=== PATIENT | male | born 2000 | race Caucasian/White ===

== ENCOUNTER 2022-05-09 22:28 | Emergency (ER) | payer OTHER ==
[2022-05-09 22:42] VITALS: BP 142/83; PULSE 95; TEMP 98.4; BMI 21.7
[2022-05-10] MEDS ORDERED: LIDOCAINE 5% TOPICAL PATCH TP ONE (00:08)
[2022-05-10] MEDS ORDERED: ACETAMINOPHEN 500 MG TABLET (FP) PO ONE (00:08)
[2022-05-10] MEDS ORDERED: IBUPROFEN 400 MG TABLET (FP) PO ONE ×2 (00:08→00:28)
[2022-05-10] MEDS ORDERED: ACETAMINOPHEN 325 MG TABLET (FP) ONE (00:28)
[2022-05-10] MEDS ORDERED: LIDOCAINE 5% TOPICAL PATCH ONE (00:28)
[2022-05-10] MEDS ORDERED: LIDOCAINE PATCH REMOVAL MC SCH (22:00)
== END 2022-05-10 02:18 | disposition home or self-care (01) ==
LOC: JER 22:28
DX: R07.9 Chest pain, unspecified (principal)
CPT/HCPCS: 71046-TC-FY; 93005; 93010; 99284-25

== ENCOUNTER 2022-11-05 13:23 | Emergency (ER) | payer OTHER ==
[2022-11-05 13:31] VITALS: BP 126/77; PULSE 73; RESP 18; TEMP 98.1; BMI 23.0
[2022-11-05] MEDS ORDERED: ONDANSETRON 4 MG/2 ML VIAL IVPUSH ONE (13:46)
[2022-11-05] MEDS ORDERED: SODIUM CHLORIDE 0.9% 500 ML INFUS.BAG IV ONE (13:46)
[2022-11-05] MEDS ORDERED: ONDANSETRON 4 MG/2 ML VIAL ONE (13:49)
[2022-11-05 14:21] LABS: BASO % 0.3 % (0-2.0); EOS % 0.6 % (0-4.5); HEMATOCRIT 42.8 % (35.4-49); HEMOGLOBIN 14.5 GM/dL (11.7-16.9); LYMPH % 11.4 % (8-40); MCH 32.1 pg (25.7-33.7); MCHC 33.8 g/dl (32.0-35.9); MEAN CELL VOLUME 94.9 fl (80-96); MONO % 7.1 % (3.8-10.2); NEUT % 80.6 % (42.8-82.8); PLATELET COUNT 174 10^3/uL (134-434); RBC 4.51 M/mm3 (4.00-5.60); RDW 12.9 % (11.9-15.9); URINE APPEARANCE CLEAR; URINE BILIRUBIN NEGATIVE (NEGATIVE); URINE COLOR YELLOW; URINE GLUCOSE (UA) NEGATIVE (NEGATIVE); URINE KETONE NEGATIVE (NEGATIVE); URINE LEUK ESTERASE NEGATIVE (NEGATIVE); URINE NITRITE NEGATIVE (NEGATIVE); URINE PROTEIN NEGATIVE (NEGATIVE); URINE UROBILINOGEN 0.2 mg/dL (0.2-1.0)
[2022-11-05 14:40] LABS: CALCIUM 9.3 mg/dL (8.5-10.1)
[2022-11-05 14:41] LABS: ALBUMIN 4.1 g/dl (3.4-5.0); BLOOD UREA NITROGEN 11.8 mg/dL (7-18)
[2022-11-05 14:44] LABS: CREATININE 0.9 mg/dL (0.55-1.3)
[2022-11-05 14:46] LABS: BILIRUBIN,TOTAL 0.4 mg/dL (0.2-1)
== END 2022-11-05 15:29 | disposition home or self-care (01) ==
LOC: JER 13:23
PROC: 3E033GC Introduction of Other Therapeutic Substance into Peripheral Vein, Percutaneous Approach (ICD-10-PCS; principal; 2022-11-05)
DX: K52.9 Noninfective gastroenteritis and colitis, unspecified (principal)
CPT/HCPCS: 0241U-QW; 36415; 80053; 81003; 83690; 85025; 87086; 99284-25

== ENCOUNTER 2024-02-08 11:45 | Emergency (ER) | payer SELFPAY ==
[2024-02-08 11:54] VITALS: BP 114/67; PULSE 53; RESP 18; TEMP 98.3; BMI 23.5
[2024-02-08 12:50] LABS: THROAT:GRP A STREP NOT DETECTED (NOTDETECTED)
[2024-02-08] MEDS ORDERED: FAMOTIDINE 20 MG TABLET ONE (13:03)
[2024-02-08] MEDS ORDERED: MAG HYDROX/AL HYDROX/SIMETH 30 ML UNIT-DOSE CUP ONE (13:03)
[2024-02-08] MEDS: MAG HYDROX/AL HYDROX/SIMETH 30 ML UNIT-DOSE CUP PO ONE (13:05)
[2024-02-08] MEDS: FAMOTIDINE 20 MG TABLET PO ONE (13:05)
== END 2024-02-08 13:27 | disposition home or self-care (01) ==
LOC: JER 11:45
DX: R12 Heartburn (principal); K21.00 Gastro-esophageal reflux disease with esophagitis, without bleeding; R07.0 Pain in throat; Z20.822 Contact with and (suspected) exposure to COVID-19
CPT/HCPCS: 0241U-QW; 87651; 93005; 93010; 99284-25